=== PATIENT | male | born 1980 | race Caucasian/White ===

== ENCOUNTER 2017-02-15 07:19 | Emergency (ER) | payer OTHER, BC ==
[~2017-02-15] VITALS: Ht 175.3 cm; Wt 102.8 kg
[2017-02-15] MEDS ORDERED: AUGMENTIN875 MG PO (08:06)
[2017-02-15 08:32] VITALS: BP 147/89
== END 2017-02-15 08:34 | disposition home or self-care (01) ==
LOC: EME 07:19
PROC: 0HCFXZZ Extirpation of Matter from Right Hand Skin, External Approach (ICD-10-PCS; principal; 2017-02-15)
PROC: 3E0234Z Introduction of Serum, Toxoid and Vaccine into Muscle, Percutaneous Approach (ICD-10-PCS; principal; 2017-02-15)
DX: S61.421A Laceration with foreign body of right hand, initial encounter (principal)
CPT/HCPCS: 73130; 99281; 99283